=== PATIENT | female | born 1980 | race Caucasian/White ===

== ENCOUNTER 2022-03-09 09:34 | Outpatient (CLI) | payer BC | END 2022-03-09 09:35 | disposition home or self-care (01) | LOC: NAV RAD 09:34 | PROVIDERS: ATTEND Family Medicine | DX: M54.6 Pain in thoracic spine (principal); M47.814 Spondylosis without myelopathy or radiculopathy, thoracic region; M41.9 Scoliosis, unspecified | CPT/HCPCS: 72072 ==